=== PATIENT | female | born 1985 | race Two or more races ===

== ENCOUNTER 2018-02-14 19:48 | Emergency (ER) | payer MEDICAID ==
[~2018-02-14] VITALS: Ht 154.9 cm; Wt 62.6 kg
[~2018-02-14 19:48] MED LIST: IRONTAB35 OR; PREN29CH2 PO
[2018-02-15 00:26] VITALS: BP 98/60
== END 2018-02-15 01:18 | disposition home or self-care (01) ==
LOC: ER 19:48
DX: J06.9 Acute upper respiratory infection, unspecified (principal)
CPT/HCPCS: 71046

== ENCOUNTER → 2019-12-25 | Emergency (ER) | payer MEDICAID ==
[~2019-12-25] VITALS: Ht 154.9 cm; Wt 61.2 kg
[~2019-12-25] MED LIST changes: +CYCLOBENZAPRINE HCL 10 MG TAB PO ONE; +KETOROLAC TROMETH 15 mg/ml 1ML VL IV ONE
[2019-12-25 17:30] LABS: Basophils # (auto) 0 10 ^3/uL (0-0.2); Basophils % (auto) 0.4 % (0.0-2.0); Eosinophils # (auto) 0.1 10 ^3/uL (0-0.8); Eosinophils % (auto) 1.8 % (0.0-7.0); Hematocrit 39.3 % (36.0-46.0); Hemoglobin 13.4 g/dL (12.2-16.2); Lymphocytes # (auto) 1.5 10 ^3/uL (0.4-5.4); Lymphocytes % (auto) 19.9 % (10.0-50.0); Mean Corpuscular Hgb Conc. 34.1 g/dL (32.0-36.0); Monocytes # (auto) 0.4 10 ^3/uL (0-1.3); Monocytes % (auto) 5.6 % (0.0-12.0); Neutrophils # (auto) 5.6 10 ^3/uL (1.6-8.6); Neutrophils % (auto) 72.3 % (37.0-80.0); Nucleated Red Blood Cells % 0.1 %; Platelet Count (auto) 253 10^3/uL (140-450); Red Blood Cells 4.19 10^6/uL (4.0-5.20); Red Cell Distribution Width 13.3 % (11.8-14.3); White Blood Cell 7.7 10^3/uL (4.4-10.8)
[2019-12-25 17:37] LABS: Albumin 3.8 g/dL (3.4-5.0); BUN/Creatinine Ratio 18.6; Calcium 8.4 mg/dL (8.5-10.1)
[2019-12-25 17:40] LABS: Bilirubin, Total 0.6 mg/dL (0.2-1.0); Total Protein 7.3 g/dL (6.4-8.2)
[2019-12-25 21:33] VITALS: BP 90/53
== END | disposition home or self-care (01) ==
LOC: ER 15:51
DX: S33.9XXA Sprain of unspecified parts of lumbar spine and pelvis, initial encounter (principal); M62.838 Other muscle spasm; F17.210 Nicotine dependence, cigarettes, uncomplicated; X58.XXXA Exposure to other specified factors, initial encounter; Y93.89 Activity, other specified; Y92.89 Other specified places as the place of occurrence of the external cause; Y99.8 Other external cause status
CPT/HCPCS: 36415; 72131; 80053; 81025; 85025; 96374; 99285; J1885

== ENCOUNTER 2020-12-22 00:50 | Emergency (ER) | payer MEDICAID ==
[~2020-12-22] VITALS: Ht 154.9 cm; Wt 61.7 kg
[~2020-12-22 00:50] MED LIST changes: -CYCLOBENZAPRINE HCL 10 MG TAB PO ONE; -KETOROLAC TROMETH 15 mg/ml 1ML VL IV ONE
[2020-12-22 01:03] VITALS: BP 119/85
[2020-12-22 02:24] LABS: Urine Bacteria FEW /hpf (None Seen); Urine Blood Negative /uL (Negative); Urine Specific Gravity 1.003 (1.001-1.035); Urine WBC 1 /hpf (0 - 5)
[2020-12-22 02:25] LABS: Basophils # (auto) 0 10 ^3/uL (0-0.2); Basophils % (auto) 0.4 % (0.0-2.0); Eosinophils # (auto) 0.1 10 ^3/uL (0-0.8); Eosinophils % (auto) 0.9 % (0.0-7.0); Hemoglobin 14.6 g/dL (12.2-16.2); Lymphocytes # (auto) 2.6 10 ^3/uL (0.4-5.4); Lymphocytes % (auto) 24.7 % (10.0-50.0); Mean Corpuscular Hemoglobin 31.9 pg (28.0-32.0); Mean Corpuscular Hgb Conc. 34.8 g/dL (32.0-36.0); Mean Corpuscular Volume 91.5 fL (80.0-100.0); Monocytes # (auto) 0.7 10 ^3/uL (0-1.3); Monocytes % (auto) 6.6 % (0.0-12.0); Neutrophils # (auto) 7.1 10 ^3/uL (1.6-8.6); Neutrophils % (auto) 67.4 % (37.0-80.0); Nucleated Red Blood Cells % 0.1 %; Platelet Count (auto) 324 10^3/uL (140-450); Red Blood Cells 4.59 10^6/uL (4.0-5.20); Red Cell Distribution Width 12.9 % (11.8-14.3); White Blood Cell 10.5 10^3/uL (4.4-10.8)
[2020-12-22 02:39] LABS: Albumin 4.8 g/dL (3.4-5.0); Calcium 9.9 mg/dL (8.5-10.1); Potassium 3.8 mmol/L (3.5-5.1); Salicylate < 1.7 mg/dL (2.8-20.0)
[2020-12-22 02:40] LABS: BUN/Creatinine Ratio 7.5
[2020-12-22 02:42] LABS: Amphetamine Screen, Urine POSITIVE (NEGATIVE); Barbiturate Scree,Urine NEGATIVE (NEGATIVE); Cannabinoid Screen, Urine NEGATIVE (NEGATIVE); Cocaine Screen, Urine NEGATIVE (NEGATIVE); Opiate Scree,Urine NEGATIVE (NEGATIVE); Phencyclidine Screen, Urine NEGATIVE (NEGATIVE)
[2020-12-22 02:43] LABS: Bilirubin, Total 0.6 mg/dL (0.2-1.0); Total Protein 8.6 g/dL (6.4-8.2)
[2020-12-22] MEDS ORDERED: ACETAMINOPHEN 325 MG TAB PO ONE (02:45)
[2020-12-22 02:47] LABS: Acetaminophen < 2.0 ug/mL (10-30)
[2020-12-22 02:49] LABS: Benzodiazephine Screen, Urine NEGATIVE (NEGATIVE)
[2020-12-22] MEDS ORDERED: NAPROXEN 500 MG TAB PO ONE (04:00)
== END 2020-12-22 06:03 | disposition home or self-care (01) ==
LOC: ER 00:52
DX: K62.89 Other specified diseases of anus and rectum (principal); F17.210 Nicotine dependence, cigarettes, uncomplicated; Z79.899 Other long term (current) drug therapy
CPT/HCPCS: 36415; 80053; 80307; 80320; 80329; 81001; 85025

== ENCOUNTER 2021-06-24 19:48 | Emergency (ER) | payer MEDICAID ==
[~2021-06-24] VITALS: Ht 165.1 cm; Wt 63.5 kg
[2021-06-24 20:00] VITALS: BP 110/75
[2021-06-24] MEDS ORDERED: IBUPROFEN 600 MG TAB PO ONE (22:00)
== END 2021-06-25 06:38 | disposition home or self-care (01) ==
LOC: EDBD 19:48 → ER 19:48
DX: S20.211A Contusion of right front wall of thorax, initial encounter (principal); S00.83XA Contusion of other part of head, initial encounter; F17.210 Nicotine dependence, cigarettes, uncomplicated; Z90.49 Acquired absence of other specified parts of digestive tract; Z79.899 Other long term (current) drug therapy; Y04.2XXA Assault by strike against or bumped into by another person, initial encounter; Y93.89 Activity, other specified; Y92.410 Unspecified street and highway as the place of occurrence of the external cause; Y99.8 Other external cause status
CPT/HCPCS: 71101

== ENCOUNTER 2021-06-26 06:27 | Emergency (ER) | payer MEDICAID ==
[~2021-06-26] VITALS: Ht 154.9 cm; Wt 62.1 kg
[2021-06-26 06:32] VITALS: BP 104/64
== END 2021-06-26 09:44 | disposition home or self-care (01) ==
LOC: ER 06:27
DX: J03.90 Acute tonsillitis, unspecified (principal); J20.9 Acute bronchitis, unspecified; F17.210 Nicotine dependence, cigarettes, uncomplicated; Z90.49 Acquired absence of other specified parts of digestive tract
CPT/HCPCS: 71045

== ENCOUNTER 2021-07-01 16:27 | Emergency (ER) | payer MEDICAID ==
[~2021-07-01] VITALS: Ht 154.9 cm; Wt 63.5 kg
[2021-07-01 16:54] VITALS: BP 99/61
[2021-07-01] MEDS ORDERED: KETOROLAC TROMETH 60MG/2ML VIAL IM ONE (17:00)
== END 2021-07-01 17:18 | disposition home or self-care (01) ==
LOC: ER 16:27
DX: S90.821A Blister (nonthermal), right foot, initial encounter (principal); L84 Corns and callosities; F17.210 Nicotine dependence, cigarettes, uncomplicated; Z90.49 Acquired absence of other specified parts of digestive tract; Z79.899 Other long term (current) drug therapy; X58.XXXA Exposure to other specified factors, initial encounter; Y93.89 Activity, other specified; Y92.89 Other specified places as the place of occurrence of the external cause; Y99.8 Other external cause status
CPT/HCPCS: 96372; 99283; J1885

== ENCOUNTER 2021-07-02 02:22 | Emergency (ER) | payer MEDICAID ==
[~2021-07-02] VITALS: Ht 154.9 cm; Wt 63.5 kg
[2021-07-02] MEDS ORDERED: methylPREDNISolone SOD SUCC 125 MG/2 ML VL IM ONE (05:00)
[2021-07-02] MEDS ORDERED: KETOROLAC TROMETH 60MG/2ML VIAL IM ONE (05:00)
[2021-07-02] MEDS ORDERED: cefTRIAXone SOD 1,000 MG VL IM ONE (05:00)
[2021-07-02 05:09] VITALS: BP 101/73
[2021-07-02] MEDS: NEOMYCIN-BACITRACIN-POLYM 15GM TOP OINT TOP SCH (05:55)
== END 2021-07-02 06:52 | disposition home or self-care (01) ==
LOC: ER 02:22
DX: T25.222A Burn of second degree of left foot, initial encounter (principal); T25.221A Burn of second degree of right foot, initial encounter; L03.116 Cellulitis of left lower limb; L03.115 Cellulitis of right lower limb; F17.210 Nicotine dependence, cigarettes, uncomplicated; F41.9 Anxiety disorder, unspecified; K21.9 Gastro-esophageal reflux disease without esophagitis; Z59.0 Homelessness; Z79.899 Other long term (current) drug therapy; Z90.49 Acquired absence of other specified parts of digestive tract; X08.8XXA Exposure to other specified smoke, fire and flames, initial encounter; Y93.89 Activity, other specified; Y92.89 Other specified places as the place of occurrence of the external cause; Y99.8 Other external cause status
CPT/HCPCS: 16020; 96372; 99284; J0696; J1885; J2930